=== PATIENT | female | born 1950 | race American Indian/Alaskan Native ===

== ENCOUNTER 2021-01-14 16:39 | Emergency (ER) | payer MEDICARE ==
[2021-01-14 16:57] VITALS: BP 127/61
[2021-01-14] MEDS ORDERED: MECLIZINE 25 MG TAB PO ONE (16:59)
--- NOTE | 2021-01-14 17:00 | Event Note ---
ED Screening Note Date of service: 01/14/21 Time: 16:59 ED Screening Note: Patient complains of sudden onset of dizziness and left arm numbness starting this morning Denies headache Describes dizziness as room spinning-does admit to history of vertigo Dizziness worsens with change in body position Negative Romberg, normal strength on exam of extremities, and facial nerves are intact This initial assessment/diagnostic orders/clinical plan/treatment(s) is/are subject to change based on patients health status, clinical progression and re- assessment by fellow clinical providers in the ED. Further treatment and workup at subsequent clinical providers discretion. Patient/guardian urged not to elope from the ED as their condition may be serious if not clinically assessed and managed. Initial orders include: Labs EKG Meclizine
[2021-01-14 17:36] LABS: Basophils % (Auto) 0.3 % (0.0-1.8); Eosinophils # (Auto) 0.1 K/mm3 (0.0-0.4); Hematocrit 41.6 % (30.3-42.9); Lymphocytes # (Auto) 2.7 K/mm3 (1.2-5.4); Lymphocytes % (Auto) 22.6 % (13.4-35.0); Mean Corpuscular HGB Conc 34 % (30-34); Mean Corpuscular Volume 94 fl (79-97); Monocytes # (Auto) 0.6 K/mm3 (0.0-0.8); Monocytes % (Auto) 4.9 % (0.0-7.3); Platelet Count 296 K/mm3 (140-440); Red Blood Count 4.45 M/mm3 (3.65-5.03); Red Cell Distribution Width 13.8 % (13.2-15.2)
[2021-01-14 17:44] LABS: Alanine Aminotransferase 26 units/L (7-56); Albumin 4.5 g/dL (3.9-5); BUN/Creatinine Ratio 20; Blood Urea Nitrogen 20 mg/dL (7-17); Calcium 10.1 mg/dL (8.4-10.2); Hemolysis Index 12
--- NOTE | 2021-01-14 20:53 | Cat Scan Report ---
CT head/brain wo con INDICATION / CLINICAL INFORMATION: 70 years Female; numbness in the left arm, dizziness, nausea, palpitation, denied slurring in the spe ech, weakness. symptoms started this AM.. TECHNIQUE: Routine CT head without contrast. All CT scans at this location are performed using CT dos e reduction for ALARA by means of automated exposure control. COMPARISON: None. 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 There is otherwise mild cerebral white matter disease most consistent wit h microvascular angiopathy. There is also mild cerebral atrophy. Ventricular system is correspondingl y appropriate in size and configuration. There is no clear CT evidence of acute intracranial hemorrha ge or significant mass effect. ORBITS: No significant abnormality of visualized orbits. SINUSES / MASTOIDS: No significant abnormality in the visualized paranasal sinuses or mastoid air roxy ls. CRANIOCERVICAL JUNCTION: No significant abnormality. ADDITIONAL FINDINGS: None. IMPRESSION: 1. 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 However, there is no clear CT evidence of acute intracranial process. Signer Name: Yazan Rodriguez MD Signed: 01/14/2021 8:49 PM Workstation Name: [id number]
--- NOTE | 2021-01-14 20:58 | Emergency Department Report ---
ED General Adult HPI - General Chief complaint: Neuro Symptoms/Deficit Stated complaint: LT ARM NUMBNESS/DIZZY/NAUSEA Time Seen by Provider: 01/14/21 16:59 Source: patient Mode of arrival: Ambulatory Limitations: No Limitations - History of Present Illness Initial comments: 70-year-old -Portuguese female past medical history of hypertension diabete s as well as vertigo presents emerged department complaining of having numbness and tingling to her left arm associated with headache, dizziness some blurred vision and occasional palpitations that started earlier this morning. She reports no slurred speech or weakness. Ports no hemoptysis hematemesis hematochezia, no fever, chills, sweats no chest pain palpitation no nausea vomiting. -: Gradual Radiation: non-radiation Consistency: constant Improves with: none Worsens with: none Associated Symptoms: denies other symptoms. denies: cough, fever/chills, loss of appetite, malaise, nausea/vomiting Treatments Prior to Arrival: none - Related Data Previous Rx's Medication Instructions Recorded Last Taken Type Ipratropium/Albuterol Sulfate 1 ampul IH Q6HR #90 ampul.neb 10/25/19 Unknown Rx [DUONEB *Not for PRN Use*] amLODIPine 10 mg PO QDAY #30 tablet 10/25/19 Unknown Rx carvediloL [Coreg] 12.5 mg PO BID #60 tablet 10/25/19 Unknown Rx lisinopriL [Zestril TAB] 10 mg PO QDAY #30 tablet 10/25/19 Unknown Rx Meclizine [Antivert] 25 mg PO TID PRN #20 tablet 01/14/21 Unknown Rx Allergies Allergy/AdvReac Type Severity Reaction Status Date / Time No Known Allergies Allergy Unverified 10/15/19 15:38 ED Review of Systems ROS: Stated complaint: LT ARM NUMBNESS/DIZZY/NAUSEA Other details as noted in HPI Comment: All other systems reviewed and negative ED Past Medical Hx - Past Medical History Hx Hypertension: Yes Hx Diabetes: Yes Additional medical history: vertigo - Surgical History Additional Surgical History: hysterectomy - Social History Smoking Status: Never Smoker - Medications Home Medications: Home Medications Medication Instructions Recorded Confirmed Last Taken Type Ipratropium/Albuterol Sulfate 1 ampul IH Q6HR #90 ampul.neb 10/25/19 Unknown Rx [DUONEB *Not for PRN Use*] amLODIPine 10 mg PO QDAY #30 tablet 10/25/19 Unknown Rx carvediloL [Coreg] 12.5 mg PO BID #60 tablet 10/25/19 Unknown Rx lisinopriL [Zestril TAB] 10 mg PO QDAY #30 tablet 10/25/19 Unknown Rx Meclizine [Antivert] 25 mg PO TID PRN #20 tablet 01/14/21 Unknown Rx ED Physical Exam - General Limitations: No Limitations General appearance: alert, in no apparent distress - Head Head exam: Present: atraumatic, normocephalic - Eye Eye exam: Present: normal appearance - ENT ENT exam: Present: mucous membranes moist - Neck Neck exam: Present: normal inspection, full ROM. Absent: tenderness - Respiratory Respiratory exam: Present: normal lung sounds bilaterally. Absent: respiratory distress - Cardiovascular Cardiovascular Exam: Present: regular rate, normal rhythm. Absent: systolic murmur, diastolic murmur, rubs, gallop - GI/Abdominal GI/Abdominal exam: Present: soft, normal bowel sounds - Extremities Exam Extremities exam: Present: normal inspection - Back Exam Back exam: Present: normal inspection - Neurological Exam Neurological exam: Present: alert, oriented X3, CN II-XII intact, reflexes normal - Expanded Neurological Exam Expanded Patient oriented to: Present: person, place, time Speech: Present: fluid speech Cerebellar function: Finger to Nose: Normal Best Eye Response ([place]): (4) open spontaneously Best Motor Response ([place]): (6) obeys commands Best Verbal Response (Yesica): (5) oriented Yesica Total: 15 - Psychiatric Psychiatric exam: Present: normal affect, normal mood - Skin Skin exam: Present: warm, dry, intact, normal color. Absent: rash ED Course Vital Signs 01/14/21 16:50 Temperature 98.0 F Pulse Rate 72 Respiratory 20 Rate Blood Pressure 127/61 O2 Sat by Pulse 97 Oximetry ED Medical Decision Making - Lab Data Result diagrams: 01/14/21 17:09 01/14/21 17:09 Lab Results 01/14/21 01/14/21 Range/Units 17:09 17:09 WBC 11.8 H (4.5-11.0) K/mm3 RBC 4.45 (3.65-5.03) M/mm3 Hgb 14.0 (10.1-14.3) gm/dl Hct 41.6 (30.3-42.9) % MCV 94 (79-97) fl MCH 32 (28-32) pg MCHC 34 (30-34) % RDW 13.8 (13.2-15.2) % Plt Count 296 (140-440) K/mm3 Lymph % (Auto) 22.6 (13.4-35.0) % [place] % (Auto) 4.9 (0.0-7.3) % Eos % (Auto) 1.0 (0.0-4.3) % Baso % (Auto) 0.3 (0.0-1.8) % Lymph # (Auto) 2.7 (1.2-5.4) K/mm3 [place] # (Auto) 0.6 (0.0-0.8) K/mm3 Eos # (Auto) 0.1 (0.0-0.4) K/mm3 Baso # (Auto) 0.0 (0.0-0.1) K/mm3 Seg Neutrophils % 71.2 H (40.0-70.0) % Seg Neutrophils # 8.4 H (1.8-7.7) K/mm3 Sodium 136 L (137-145) mmol/L Potassium 4.3 (3.6-5.0) mmol/L Chloride 99.0 (98-107) mmol/L Carbon Dioxide 25 (22-30) mmol/L Anion Gap 16 mmol/L BUN 20 H (7-17) mg/dL Creatinine 1.0 (0.6-1.2) mg/dL Estimated GFR > 60 ml/min BUN/Creatinine Ratio 20 % Glucose 249 H (65-100) mg/dL Calcium 10.1 (8.4-10.2) mg/dL Total Bilirubin 0.20 (0.1-1.2) mg/dL AST 21 (5-40) units/L ALT 26 (7-56) units/L Alkaline Phosphatase 72 (35-129) units/L Troponin T < 0.010 (0.00-0.029) ng/mL Total Protein 7.9 (6.3-8.2) g/dL Albumin 4.5 (3.9-5) g/dL Albumin/Globulin Ratio 1.3 % - Radiology Data Radiology results: report reviewed [address] [place] [address] Cat Scan Report Signed Patient: ROSENDO NGUYEN MR#: [id number] : 1950 Acct:[id number] Age/Sex: 70 / F ADM Date: 01/14/21 Loc: ED Attending Dr: Ordering Physician: KELECHI SHEPPARD Date of Service: 01/14/21 Procedure(s): CT head/brain wo con Accession Number(s): [id number] cc: KELECHI SHEPPARD CT head/brain wo con INDICATION / CLINICAL INFORMATION: 70 years Female; numbness in the left arm, dizziness, nausea, palpitation, denied slurring in the speech, weakness. symptoms started this AM.. TECHNIQUE: Routine CT head without contrast. All CT scans at this location are performed using CT dose reduction for ALARA by means of automated exposure control. COMPARISON: None. FINDINGS: BRAIN / INTRACRANIAL CONTENTS: There is encephalomalacia involving posterior right parietal lobe compatible with old infarct at. There is otherwise mild cerebral white matter disease most consistent with microvascular angiopathy. There is also mild cerebral atrophy. Ventricular system is correspondingly appropriate in size and configuration. There is no clear CT ev idence of acute intracranial hemorrhage or significant mass effect. ORBITS: No significant abnormality of visualized orbits. SINUSES / MASTOIDS: No significant abnormality in the visualized paranasal sinuses or mastoid air cells. CRANIOCERVICAL JUNCTION: No significant abnormality. ADDITIONAL FINDINGS: None. IMPRESSION: 1. 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 However, there is no clear CT evidence of acute intracranial process. Signer Name: Yazan Rodriguez MD Signed: 01/14/2021 8:49 PM Workstation Name: [id number] Transcribed By: MR Dictated By: Yazan Rodriguez MD Electronically Authenticated By: Yazan Rodriguez MD Signed Date/Time: 01/14/212048 DD/ 45 TD/TT: Print Cancel - Medical Decision Making Problem #1 headache This patient presents with a headache most consistent with nonemergent cephalgia. Differential diagnosis includes migraine versus tension type headache. No headache red flags. Neurologic exam without evidence of meningismus, focal neurologic findings.Based on the patient's history and physical there is very low clinical suspicion for significant intracranial pathology. The headache was NOT sudden onset, NOT maximal at onset, there are NO neurologic findings, the patient does NOT have a fever, the patient does NOT have any jaw claudication, the patient does NOT endorse a clotting disorder, patient DENIES any trauma or eye pain and the headache is NOT associated with dizziness or ataxia. Presentation not consistent with acute intracranial bleed to include SAH (lack of risk factors, headache history). Presentation not consistent with acute HOT PIPE GAUGER infection to include meningitis or brain abscess, Temporal arteritis unlikely, as is acute angle closure glaucoma given history and physical findings. Presentation not consistent with other acute, emergent causes of headache at this time. Plan to treat symptomatically with pain medication. No indication for imaging/LP at this time. CT brain normal Plan: pain medication, , serial reassessment Problem #2 dizziness Based on the history, exam, and findings presentation not consistent with syncope, seizure, stroke, meningitis, symptomatic anemia, increased ICP, ICH. A dditionally I have a low suspicion for labyrinthitis, acute otitis media or other infectious process. Prior to discharge the symptoms are controlled the patient is functioning well speaking in full sentences he is able to sit and stand and ambulate with no limitations and is able to utilize his cell phone in the form of texting and talking with video check with with no delay. Advise follow-up with primary care provider within 24 to 48 hours. Patient was treated with Antivert. Critical care attestation.: If time is entered above; I have spent that time in minutes in the direct care of this critically ill patient, excluding procedure time. ED Disposition Clinical Impression: Headache, Dizziness, Hyperglycemia Disposition: DC- TO HOME OR SELFCARE Is pt being admited?: No Does the pt Need Aspirin: No Condition: Stable Instructions: Dizziness Prescriptions: Meclizine [Antivert] 25 mg PO TID PRN #20 tablet PRN Reason: Vertigo Referrals: PRIMARY CARE, [Primary Care Provider] - 3-5 Days [facility] [Provider Group] - 3-5 Days
[2021-01-14 22:17] LABS: Bilirubin,Urine NEG (Negative); Blood,Urine NEG (Negative); Color,Urine Yellow (Yellow); Mucus,Urine FEW /HPF; Protein,Urine <15 mg/dL mg/dL (Negative); Urobilinogen,Urine < 2.0 mg/dL (<2.0)
--- NOTE | 2021-01-15 14:19 | Electrocardiograph Report ---
[facility] Test Date: 2021-01-14 Test Time: 17:05:09 Pat Name: ROSENDO NGUYEN Department: Room: Gender: F Position Description Manager: MUSTAPHA : 1950 Requested By: NATALIA HOWE Order Number: [id number] Reading MD: Perry De La Torre Measurements Intervals [place] Rate: 68 P: -5 TX: 172 QRS: 4 QRSD: 70 T: -9 QT: 385 QTc: 409 Interpretive Statements Sinus rhythm No previous ECG available for comparison Electronically Signed On 01-15-2021 14:18:40 EDT by Perry De La Torre
== END 2021-01-14 21:45 | disposition home or self-care (01) ==
LOC: ED 16:39
DX: E11.65 Type 2 diabetes mellitus with hyperglycemia (principal); R51.9 Headache, unspecified; R42 Dizziness and giddiness; I10 Essential (primary) hypertension; Z90.710 Acquired absence of both cervix and uterus; Z79.899 Other long term (current) drug therapy
CPT/HCPCS: 36415; 70450; 80053; 81001; 84484; 85025; 93005

== ENCOUNTER 2022-03-13 13:53 | Emergency (ER) | payer MEDICARE ==
[2022-03-13] MEDS ORDERED: SODIUM CHLORIDE 0.9% 1000 ML 1,000 ML IV ONE (15:16)
--- NOTE | 2022-03-13 15:53 | XRay Report ---
XR chest 1V ap INDICATION / CLINICAL INFORMATION: Syncope. COMPARISON: 10/18/2019 FINDINGS: SUPPORT DEVICES: None. HEART /PULMONARY VASCULATURE: No significant abnormality. LUNGS / PLEURA: No significant pulmonary or pleural abnormality. No pneumothorax. ADDITIONAL FINDINGS: No significant additional findings. IMPRESSION: 1. No acute findings. Signer Name: Braden Tolbert MD Signed: 03/13/2022 3:48 PM Workstation Name: [id number]
[2022-03-13 16:09] LABS: Basophils % (Auto) 0.3 % (0.0-1.8); Eosinophils # (Auto) 0.1 K/mm3 (0.0-0.4); Eosinophils % (Auto) 0.5 % (0.0-4.3); Hematocrit 42.1 % (30.3-42.9); Hemoglobin 14.1 gm/dl (10.1-14.3); Lymphocytes # (Auto) 1.8 K/mm3 (1.2-5.4); Lymphocytes % (Auto) 17.4 % (13.4-35.0); Mean Corpuscular HGB Conc 34 % (30-34); Mean Corpuscular Volume 92 fl (79-97); Monocytes # (Auto) 0.7 K/mm3 (0.0-0.8); Monocytes % (Auto) 6.7 % (0.0-7.3); Platelet Count 298 K/mm3 (140-440); Red Cell Distribution Width 12.6 % (13.2-15.2)
[2022-03-13 16:15] VITALS: BP 177/72
[2022-03-13 16:23] LABS: INR 0.87 (0.87-1.13)
[2022-03-13 16:30] LABS: Creatine Kinase MB 1.1 ng/mL (0.0-4.0)
[2022-03-13 16:31] LABS: Alanine Aminotransferase 26 units/L (7-56); Albumin 4.4 g/dL (3.9-5); BUN/Creatinine Ratio 16; Blood Urea Nitrogen 22 mg/dL (7-17); Calcium 9.9 mg/dL (8.4-10.2); Hemolysis Index 15
[2022-03-13] MEDS ORDERED: INSULIN REGULAR, HUMAN 100 UNITS/1 ML IV ONE (17:00)
--- NOTE | 2022-03-13 19:01 | Emergency Department Report ---
ED General Adult HPI - General Chief complaint: Syncope Stated complaint: SYNCOPE AND HYPERGLYCEMIA PUI?: No Time Seen by Provider: 03/13/22 15:05 Source: EMS Mode of arrival: Stretcher Limitations: Altered Mental Status - History of Present Illness Initial comments: Pt reports syncopal episode and hyperglycemia that presented today. BG 506 per EMS -: Gradual, hour(s) Severity scale (0 -10): 0 Consistency: intermittent Improves with: none Worsens with: none Associated Symptoms: denies: denies other symptoms, confusion, chest pain Treatments Prior to Arrival: none - Related Data Previous Rx's Medication Instructions Recorded Last Taken Type Ipratropium/Albuterol Sulfate 1 ampul IH Q6HR #90 ampul.neb 10/25/19 Unknown Rx [DUONEB *Not for PRN Use*] amLODIPine 10 mg PO QDAY #30 tablet 10/25/19 Unknown Rx carvediloL [Coreg] 12.5 mg PO BID #60 tablet 10/25/19 Unknown Rx lisinopriL [Zestril TAB] 10 mg PO QDAY #30 tablet 10/25/19 Unknown Rx Meclizine [Antivert] 25 mg PO TID PRN #20 tablet 01/14/21 Unknown Rx Insulin NPH/Regular [NovoLIN 70/30] 4 unit SUB-Q BID 30 Days #100 units 03/13/22 Unknown Rx Allergies Allergy/AdvReac Type Severity Reaction Status Date / Time No Known Allergies Allergy Unverified 10/15/19 15:38 ED Review of Systems ROS: Stated complaint: SYNCOPE AND HYPERGLYCEMIA Other details as noted in HPI Constitutional: denies: chills, fever Eyes: denies: eye pain, eye discharge, vision change ENT: denies: ear pain, throat pain Respiratory: denies: cough, shortness of breath, wheezing Cardiovascular: denies: chest pain, palpitations Endocrine: no symptoms reported Gastrointestinal: denies: abdominal pain, nausea, diarrhea Genitourinary: denies: urgency, dysuria, discharge Musculoskeletal: denies: back pain, joint swelling, arthralgia Skin: denies: rash, lesions Neurological: denies: headache, weakness, paresthesias Psychiatric: denies: anxiety, depression Hematological/Lymphatic: denies: easy bleeding, easy bruising ED Past Medical Hx - Past Medical History Previous Medical History?: Yes Hx Hypertension: Yes Hx Diabetes: Yes Additional medical history: vertigo - Surgical History Past Surgical History?: Yes Additional Surgical History: hysterectomy - Social History Smoking Status: Never Smoker - Medications Home Medications: Home Medications Medication Instructions Recorded Confirmed Last Taken Type Ipratropium/Albuterol Sulfate 1 ampul IH Q6HR #90 ampul.neb 10/25/19 Unknown Rx [DUONEB *Not for PRN Use*] amLODIPine 10 mg PO QDAY #30 tablet 10/25/19 Unknown Rx carvediloL [Coreg] 12.5 mg PO BID #60 tablet 10/25/19 Unknown Rx lisinopriL [Zestril TAB] 10 mg PO QDAY #30 tablet 10/25/19 Unknown Rx Meclizine [Antivert] 25 mg PO TID PRN #20 tablet 01/14/21 Unknown Rx Insulin NPH/Regular [NovoLIN 70/30] 4 unit SUB-Q BID 30 Days #100 units 03/13/22 Unknown Rx ED Physical Exam - General Limitations: Altered Mental Status General appearance: alert, in no apparent distress - Head Head exam: Present: atraumatic, normocephalic - Eye Eye exam: Present: normal appearance - ENT ENT exam: Present: mucous membranes moist - Neck Neck exam: Present: normal inspection - Respiratory Respiratory exam: Present: normal lung sounds bilaterally. Absent: respiratory distress - Cardiovascular Cardiovascular Exam: Present: regular rate, normal rhythm. Absent: systolic murmur, diastolic murmur, rubs, gallop - GI/Abdominal GI/Abdominal exam: Present: soft, normal bowel sounds - Extremities Exam Extremities exam: Present: normal inspection - Back Exam Back exam: Present: normal inspection - Neurological Exam Neurological exam: Present: alert, oriented X3 - Psychiatric Psychiatric exam: Present: normal affect, normal mood - Skin Skin exam: Present: warm, dry, intact, normal color. Absent: rash ED Course Vital Signs 03/13/22 03/13/22 03/13/22 14:02 14:38 15:11 Temperature 98.0 F 98.2 F Pulse Rate 86 88 83 Respiratory 18 14 12 Rate Blood Pressure 177/69 Blood Pressure 158/74 177/69 175/56 [Left] O2 Sat by Pulse 96 98 100 Oximetry 03/13/22 16:13 Temperature Pulse Rate 76 Respiratory 14 Rate Blood Pressure Blood Pressure 177/72 [Left] O2 Sat by Pulse 100 Oximetry ED Medical Decision Making - Lab Data Result diagrams: 03/13/22 15:46 03/13/22 15:46 - EKG Data -: EKG Interpreted by Me EKG shows normal: sinus rhythm - Radiology Data Radiology results: report reviewed, image reviewed - Medical Decision Making work up showed hyperggklycemia, non ketotic, head ct negative isnulin given BS down to 200s ,r efilled for her insulin Critical care attestation.: If time is entered above; I have spent that time in minutes in the direct care of this critically ill patient, excluding procedure time. ED Disposition Clinical Impression: Hyperglycemia, Syncope Disposition: HOME / SELF CARE / HOMELESS Is pt being admited?: No Does the pt Need Aspirin: No Condition: Stable Instructions: Syncope (ED), Preventing Type 2 Diabetes Mellitus, Blood Glucose Monitoring, Adult Prescriptions: Insulin NPH/Regular [NovoLIN 70/30] 4 unit SUB-Q BID 30 Days #100 units
== END 2022-03-13 20:29 | disposition home or self-care (01) ==
LOC: ED 13:53
DX: E11.65 Type 2 diabetes mellitus with hyperglycemia (principal); R55 Syncope and collapse; I10 Essential (primary) hypertension
CPT/HCPCS: 36415; 71045; 80053; 82010; 82550; 82553; 82962; 83735; 83880; 84484; 85025; 85610; 96361; 96374; 99284; J7030; Q9967; J1815